=== PATIENT | female | born 1950 | race African-American/Black ===

== ENCOUNTER 2020-03-13 17:20 | Inpatient (IN) | payer MEDICARE, OTHER ==
[~2020-03-13] VITALS: Ht 162.6 cm; Wt 134.3 kg
[~2020-03-13 17:20] MED LIST: ADULT TUSS100 MG/5 M PO; AMLACTIN TOP; ARTIFICIAL TEAR15 M1 OU; ASMANEX220 MC1 INH; ATORVASTATIN CA40 MG PO; CLOTRIMAZOLE15 GM TOP; COL-RITE250 MG PO; COMBIVENT RESPIM4 GM INH; CYCLOBENZAPRINE10 MG PO; DESENEX TOP; FERROUS GLUCON325 M1 PO; FLUTICASONE PRO16 GM NAS; FUROSEMIDE40 MG PO; GABAPENTIN300 MG PO; GAS-X80 MG PO; HIGH POTENCY42.5 GM TOP; ISORDIL40 MG PO; LANTUS100 UNITS/ SUB-Q; LEVAQUIN750 MG PO; LIDOCAINE35.44 GM TOP; MAG-OXIDE400 MG PO; MELATONIN1 MG PO; MELOXICAM15 MG PO; METOPROLOL TART25 MG PO; NIFEDICAL XL60 MG PO; NITROGLYCERIN0.4 MG SL; NOVOLOG100 UNIT/2 SUB-Q; NOVOLOG100 UNITS/ IV; ONDANSETRON HCL4 MG PO; OXYCODONE-ACET1 EAC1 PO; POLYETHYLENE GL17 GM PO; POTASSIUM CHLO20 ME1 PO; PROVENTIL HFA6.7 GM INH; RANITIDINE HCL150 MG PO; SELENIUM SULFI180 ML TOP; TROSPIUM CHLORI20 MG PO; VITAMIN C500 M1 PO; VITAMIN D31000 UNI1 PO; ZESTRIL20 MG PO
[2020-03-14] MEDS ORDERED: TYLENOL325 MG PO (13:01)
[2020-03-14] MEDS ORDERED: ALOE VESTA CLE118 ML TOP (13:08)
[2020-03-14] MEDS ORDERED: MAALOX ADVANCE355 ML PO (13:09)
[2020-03-14] MEDS ORDERED: NORVASC10 MG PO (13:10)
[2020-03-14] MEDS ORDERED: ADULT ASPIRIN R81 MG PO (13:11)
[2020-03-14] MEDS ORDERED: TESSALON PERLE100 MG PO (13:12)
[2020-03-14] MEDS ORDERED: EPIDIOLEX100 MG/1 M PO (13:13)
[2020-03-14] MEDS ORDERED: LUBRICANT EYE D15 M3 OP (13:14)
[2020-03-14] MEDS ORDERED: VITAMIN D325 MCG PO (13:16)
[2020-03-14] MEDS ORDERED: VITAMIN B-121000 MCG PO (13:17)
[2020-03-14] MEDS ORDERED: DEXAMETHASONE SO5 ML OTIC (13:36)
[2020-03-14] MEDS ORDERED: HYDRALAZINE HCL50 MG PO (13:40)
[2020-03-14] MEDS ORDERED: HYDROCHLOROTHIA25 MG PO (13:49)
[2020-03-14] MEDS ORDERED: ANTI-ITCH28 G2 TOP (13:54)
[2020-03-14] MEDS ORDERED: EUCERIN SKIN C396 GM TOP (13:56)
[2020-03-14] MEDS ORDERED: LANTUS100 UNITS/ SUB-Q (13:59)
[2020-03-14] MEDS ORDERED: REFRESH LACRI-3.5 GM OU (14:09)
[2020-03-14] MEDS ORDERED: OMEPRAZOLE20 MG PO (14:14)
[2020-03-14] MEDS ORDERED: SENNA8.6 MG PO (14:16)
[2020-03-14] MEDS ORDERED: ALDACTONE25 MG PO (14:17)
[2020-03-14] MEDS ORDERED: ZINC OXIDE60 GM TOP (14:18)
[2020-03-14] MEDS ORDERED: ALBUTEROL2.5 MG/3 M INH (14:21)
[2020-03-14] MEDS ORDERED: RENACIDIN IRRIG30 ML IRRIGATION (14:28)
--- NOTE | 2020-03-14 16:33 | EKG ---
[facility] [address] [facility] [place], [place] [address] Signed Normal sinus rhythm Minimal voltage criteria for LVH, may be normal variant Inferior infarct , age undetermined Prolonged QT Abnormal ECG No previous ECGs available Confirmed by TATIANA CONTRERSA DO ([id number]) on 03/14/2020 4:33:10 PM Electronically Signed By: TATIANA CONTRERAS DO 03/14/20 1633 PATIENT NAME: ANGELICA OLIVO Electrocardiogram DATE OF : 48 PHYSICIAN: TATIANA CONTRERAS DO REPORT #: [id number] REPORT IS CONFIDENTIAL AND NOT TO BE RELEASED WITHOUT AUTHORIZATION
--- NOTE | 2020-03-16 00:35 | PATH ---
[facility] [facility] [address] [facility] [place], [place] [address] Signed ORDERING PHYSICIAN: Arlen Brush MD PATIENT NAME: ANGELICA OLIVO GENDER: Syed : 1950 SPECIMEN(S): MOLECULAR PATHOLOGY RESULTS: SARS-CoV-2 DETECTED ADDITIONAL NOTES.: The [place] Fusion SARS-CoV-2 Assay is a multiplex real-time PCR (RT-PCR) in vitro diagnostic test intended for the qualitative detection of RNA from SARS-CoV-2 from individuals who meet COVID-19 clinical and/or epidemiological criteria. In general, SARS-CoV-2 RNA can be detected during the acute phase of infection. Positive results indicate the presence of SARS-CoV-2 RNA. Clinical correlation with patient history and other diagnostic information is necessary to determine patient infection status. Positive results do not rule out bacterial infection or co-infection with other viruses. Negative results do not preclude SARS-CoV-2 infection and should not be used as the sole basis for patient management decisions. Negative results must be combined with other clinical observations, patient history, and epidemiological information. The [place] Fusion SARS-CoV-2 Assay is not yet approved or cleared by the [place] FDA. When there are no FDA-approved or cleared tests available, and other criteria are met, FDA can make tests available under an emergency access mechanism called an Emergency Use Authorization (EUA). The EUA for this test is supported by the [employer] Teacher of Health and Human Service's (HHS's) declaration that circumstances exist to justify the emergency use of in vitro diagnostics for the detection and/or diagnosis of the virus that causes COVID-19. This EUA will remain in effect for the duration of the COVID-19 declaration justifying emergency of IVDs, unless it is terminated or revoked by FDA, after which the test may no longer be used. The [place] Fusion SARS-CoV-2 Assay is for use only under EUA in US laboratories certified under the Clinical Laboratory Improvement Amendments of 1988 (CLIA) to perform high complexity tests. [facility] is certified under CLIA to perform high complexity PATIENT NAME: ANGELICA OLIVO PATHOLOGY DATE OF : 48 REPORT #: [id number] PHYSICIAN: LONDON BECKER PCP: NO PRIMARY CARE PHYSICIAN REPORT IS CONFIDENTIAL AND NOT TO BE RELEASED WITHOUT AUTHORIZATION [address] [address] Signed clinical laboratory testing. PERFORMING LABORATORY.: Molecular testing was performed by [facility] [address] [place], [place] [address] [address] ([employer] Supervisor: Ricky Vidal D.O.; CLIA#: [id number]) Diagnostician: System Interface Pathologist Electronically Signed 03/16/2020 Copies: ~ PATIENT NAME: ANGELICA OLIVO PATHOLOGY DATE OF : [birth year] REPORT #: [id number] PHYSICIAN: LONDON BECKER PCP: NO PRIMARY CARE PHYSICIAN REPORT IS CONFIDENTIAL AND NOT TO BE RELEASED WITHOUT AUTHORIZATION
== END 2020-03-17 15:00 | disposition home or self-care (01) | DRG 304 ==
LOC: ED 17:20 → CCU 22:30 → MS 22:30
PROVIDERS: ADMIT Student in an Organized Health Care Education/Training Program
DX: I16.1 Hypertensive emergency (principal); G93.41 Metabolic encephalopathy; U07.1 COVID-19; I50.32 Chronic diastolic (congestive) heart failure; J96.11 Chronic respiratory failure with hypoxia; I13.0 Hypertensive heart and chronic kidney disease with heart failure and stage 1 through stage 4 chronic kidney disease, or unspecified chronic kidney disease; N18.9 Chronic kidney disease, unspecified; G89.29 Other chronic pain; E11.22 Type 2 diabetes mellitus with diabetic chronic kidney disease; E11.43 Type 2 diabetes mellitus with diabetic autonomic (poly)neuropathy; K31.84 Gastroparesis; M54.9 Dorsalgia, unspecified; R82.71 Bacteriuria; E86.0 Dehydration; N85.2 Hypertrophy of uterus; Z88.0 Allergy status to penicillin; Z88.2 Allergy status to sulfonamides; Z88.8 Allergy status to other drugs, medicaments and biological substances; Z88.4 Allergy status to anesthetic agent; Z79.1 Long term (current) use of non-steroidal anti-inflammatories (NSAID); Z79.4 Long term (current) use of insulin; Z79.891 Long term (current) use of opiate analgesic; Z79.51 Long term (current) use of inhaled steroids; Z79.899 Other long term (current) drug therapy
CPT/HCPCS: 36415; 36600; 70450; 71045; 74176; 80048; 80053; 81001; 82010; 82140; 82803; 83605; 83735; 83880; 84100; 84443; 84484; 85025; 85651; 87088; 93005; 93010; 94640; 96361; 96365; 96375; 96376; 97116; 97163; 97530; 99285-25; C9803; G0480; J0692; J0696; J1630; J1650; J1815; J2310; J3475; J3480; J7030; J7060; J7121